=== PATIENT | female | born 1960 | race Caucasian/White ===

== ENCOUNTER 2021-02-02 09:56 | Outpatient (RCR) | payer BC ==
[~2021-02-02] VITALS: Ht 160 cm; Wt 105.5 kg
[2021-02-02] MEDS ORDERED: TYLENOL 500MG500 MG PO (10:20)
[2021-02-02 10:22] VITALS: BP 140/81; PULSE 86; TEMP 98.7
== END 2021-02-02 12:00 | disposition home or self-care (01) ==
LOC: EUO 09:56
DX: Z45.2 Encounter for adjustment and management of vascular access device (principal); Z51.11 Encounter for antineoplastic chemotherapy; C21.0 Malignant neoplasm of anus, unspecified
CPT/HCPCS: C1751